=== PATIENT | female | born 1990 | race Hispanic/Latino ===

== ENCOUNTER 2018-03-02 14:20 | Emergency (ER) | payer OTHER ==
[2018-03-02 14:49] LABS: #Basophils 0.1 thou/uL (0.0-0.2); #Eosinphils 0.3 thou/uL (0.0-0.7); #Lymphocytes 3.1 thou/uL (1.20-3.40); #Monocytes 0.5 thou/uL (0.11-0.59); #Neutrophils 5.9 thou/uL (1.40-6.50); %Basophils 0.7 % (0.0-1.0); %Eosinophils 3.2 % (0.0-10.0); %Lymphocytes 31.1 % (21.0-51.0); %Monocytes 5.5 % (0.0-10.0); %Neutrophils 59.5 % (42.0-75.0); Hemoglobin 14.9 g/dL (12.0-16.0); Mean Corpuscular HGB CONC 31.7 g/dL (32.0-36.0); Mean Corpuscular Hemoglobin 26.8 pg (27.0-31.0); Mean Corpuscular Volume 84.7 fL (78.0-98.0); Mean Platelet Volume 9.2 fL (7.4-10.4); Platelet Count 285 thou/uL (130-400); RBC Distribution Width 13.7 % (11.5-14.5); Red Blood Cell (RBC) Count 5.56 mill/uL (4.20-5.40); White Blood Cell (WBC) Count 9.8 thou/uL (4.8-10.8)
[2018-03-02 14:53] LABS: Bilirubin Negative (Negative); Blood, Urine Negative (Negative); Clarity CLEAR (Clear); Glucose, Urine (Dipstick) Negative (Negative); Leukocyte Negative (Negative); Nitrite Negative (Negative); Protein, Urine (Dipstick) Negative (Neg-Trace); Specific Gravity, Urine 1.028 (1.002-1.036); Urobilinogen 0.2 mg/dL (0.2-1.0)
[2018-03-02 14:57] LABS: Pregnancy Test - Urine (BHCG) Negative (Negative)
[2018-03-02 14:58] LABS: Pregu Control Bar Appear? YES (CONTROL BAR); Specific Gravity 1.028 (1.002-1.036)
[2018-03-02 14:59] LABS: Pregu Control Background? CLEAR/WHITE (CLR/WHITE)
[2018-03-02 15:11] LABS: ALT (SGPT) 36 U/L (8-55); AST (SGOT) 33 U/L (5-34); Albumin 4.6 g/dL (3.5-5.0); Alkaline Phosphatase 111 U/L (40-150); Anion Gap 13 mmol/L (10-20); BUN (Urea Nitrogen) 13 mg/dL (7.0-18.7); Bilirubin, Total 0.4 mg/dL (0.2-1.2); Calc. Creatinine Clearance 0 mL/min (70-130); Calcium 9.3 mg/dL (7.8-10.44); Carbon Dioxide 27 mmol/L (22-29); Chloride 106 mmol/L (98-107); Estimated GFR-MDRD Greater than 90; Globulin 3.2 g/dL (2.4-3.5); Glucose 102 mg/dL (70-105); Lipase 15 U/L (8-78); Potassium 3.5 mmol/L (3.5-5.1); Protein, Total 7.8 g/dL (6.0-8.3); Sodium 142 mmol/L (136-145)
== END 2018-03-02 16:01 | disposition home or self-care (01) ==
LOC: ERS 14:20
DX: K21.9 Gastro-esophageal reflux disease without esophagitis (principal)
CPT/HCPCS: 36415; 80053; 81003; 81025; 83690; 85025; 93005

== ENCOUNTER 2019-05-03 11:49 | Day surgery (SDC) | payer OTHER ==
[2019-05-03 12:35] VITALS: BP 136/84; TEMP 97.8; BMI 39.8
[2019-05-03] MEDS ORDERED: hydrALAZINE 20 MG/ML VIAL SLOW IVP PRN (13:05)
--- NOTE | 2019-05-03 14:27 | ULT ---
LIMITED OBSTETRICAL ULTRASOUND FOR BIOPHYSICAL PROFILE INDICATION: 34 week with gestational diabetes TECHNIQUE: Grayscale, M-mode Doppler, color Doppler and spectral Doppler images were obtained. Biophy sical profile was submitted by the ground water technician. Imaging is focused on the clinical indication. COMPARISON: No relevant prior studies available. GESTATION: Number of gestations: Single. Presentation: Cephalic. heart rate: 163 bpm. Placental location: Posterior in vertex Previa: No evidence for previa. Cervical length: 3.8 cm INGRID: 16.2 cm. Biophysical profile: tone: 2 out of 2. breathin out of 2 movements: 2 out of 2 Amniotic fluid level: 2 out of 2 Biparietal diameter: 8.71 cm giving estimated gestational age of 36 weeks and 0 days (83rd percentile ). Head circumference: 31.70 cm giving an estimated gestational age of 35 weeks and 4 days (34th percent ile). Abdominal circumference: 36.29 cm given estimated gestational age of 40 weeks and 1 day (no percentil e given). Femoral length 6.80 cm giving estimated gestational age of 35 weeks and 0 days (44th percentile) Estimated weight is 3381 g +/- 5 100 g (7 lbs. 7 oz. +/- 18 ounces) (99 percentile). The average gestational age by ultrasound is 36 weeks and 5 days with estimated due date May 26, 2019. The clinical age is 34 weeks and 6 days with estimated due date of June 08, 2019. IMPRESSION: 1. Single live intrauterine gestation with size and dates as above. 2. Biophysical profile of 8 out of 8
--- NOTE | 2019-05-03 14:28 | ULT ---
LIMITED OBSTETRICAL ULTRASOUND FOR BIOPHYSICAL PROFILE INDICATION: 34 week with gestational diabetes TECHNIQUE: Grayscale, M-mode Doppler, color Doppler and spectral Doppler images were obtained. Biophy sical profile was submitted by the medication reconciliation technician. Imaging is focused on the clinical indication. COMPARISON: No relevant prior studies available. GESTATION: Number of gestations: Single. Presentation: Cephalic. heart rate: 163 bpm. Placental location: Posterior in vertex Previa: No evidence for previa. Cervical length: 3.8 cm INGRID: 16.2 cm. Biophysical profile: tone: 2 out of 2. breathin out of 2 movements: 2 out of 2 Amniotic fluid level: 2 out of 2 IMPRESSION: 1. Biophysical profile of 8 out of 8
--- NOTE | 2019-05-03 16:07 | PRG ---
DATE OF SERVICE: 05/03/2019 TIME OF SERVICE: 1450 hours. PRESENTING COMPLAINT: Contractions at 34 to 35 weeks' gestation. HISTORY OF PRESENT ILLNESS: Ms. Bentley is a 28-year-old 5, para 2, AB 2, living 2, previous x2, who has gestational diabetes. She sees Dr. Garrick Caba. She presents complaining of contractions. She denies nausea or vomiting. She denies other complications in this . HISTOLOGY MANAGER HISTORY: Noted. Blood type A negative, antibody negative. Pap negative. Rubella immune. VDRL nonreactive. Hepatitis B, GC, chlamydia negative. Antepartum record does not reflect the patient's office visits during this . PAST MEDICAL HISTORY: Gestational diabetes. PAST SURGICAL HISTORY: C-sections. ALLERGIES: DENIES. MEDICATIONS: vitamins and metformin. SOCIAL HISTORY: Denies tobacco, alcohol, or drug use. FAMILY HISTORY: Noncontributory. REVIEW OF SYSTEMS: Noncontributory. PHYSICAL EXAMINATION: GENERAL: female, in no acute distress. The patient was originally having some contractions and reported she had no p.o. intake all day. VITAL SIGNS: Blood pressure was 118/72, pulse 85, and respirations 18. HEENT: Within normal limits. LUNGS: Clear to auscultation bilaterally. HEART: Regular rhythm. ABDOMEN: Soft, nontender. No rebound or guarding. Vulvar lesion in vagina with discharge. Cervical exam by RN was closed, long, and high. EXTREMITIES: No clubbing, cyanosis, or edema. Nonstress test was carried out for greater than 30 minutes, which revealed category 1 to category 2 tracing with persistent category I. No D cells. Reactive NST. Biophysical profile was performed, which revealed a 7 pounds 7 ounces, 36 week and 5 day CGA with an INGRID of 16.2, BPP of 8/8 for vertex with a posterior placenta. The patient was fed and p.o. hydrated, contractions ceased and the patient felt much better. She had persistent category 1 tracing. IMPRESSION: Gestational diabetes 35 weeks' gestation with resolved contractions. PLAN: Discharge home. ER precautions. Keep scheduled followup with Gertrudis. Job ID: [id number]
== END 2019-05-03 15:15 | disposition home or self-care (01) ==
LOC: L&D/OP 11:49
PROVIDERS: ATTEND Obstetrics & Gynecology
DX: O47.03 False labor before 37 completed weeks of gestation, third trimester (principal); O24.415 Gestational diabetes mellitus in pregnancy, controlled by oral hypoglycemic drugs; O34.219 Maternal care for unspecified type scar from previous cesarean delivery; O09.293 Supervision of pregnancy with other poor reproductive or obstetric history, third trimester; Z3A.35 35 weeks gestation of pregnancy; Z79.84 Long term (current) use of oral hypoglycemic drugs
CPT/HCPCS: 36416; 76815; 76819; 99282

== ENCOUNTER 2019-05-18 08:05 | Inpatient (IN) | payer OTHER ==
[2019-05-18] MEDS ORDERED: Ondansetron PF 4 MG/2 ML Vial IVP PRN ×3 (09:37→15:18)
[2019-05-18] MEDS ORDERED: hydrALAZINE 20 MG/ML VIAL SLOW IVP PRN ×2 (09:37→15:18)
[2019-05-18] MEDS ORDERED: Promethazine HCl 25 MG/ML VIAL IM PRN ×3 (09:37→15:18)
--- NOTE | 2019-05-18 09:43 | PDOC.LDHP ---
Labor and Delivery H&P HPI: 28 y/o at 37 and 0/7 days for repeat with Gestational HTN, and Gestational DM on Metformin, and LGA fetus approximately 9 pounds in size. Current gestational age (weeks): 37 Due date: 06/08/19 Grav: 5 Para: 2 Current complications: gestational diabetes, gestational hypertension Abnormal US findings: Yes (LGA Fetus) Current medications: pre-alice vitamins Previous surgical history: low tranverse CS, other (D&C x1) Allergies/Adverse Reactions: Allergies Allergy/AdvReac Type Severity Reaction Status Date / Time No Known Allergies Allergy Unverified 05/03/19 12:24 Social history: none - Physical Exam Vital signs reviewed and normal: yes General: NAD, resting Heart: RRR Lungs: CTAB Abdomen: gravid Extremeties: no edema FHT: category 1 - Assessment L&D Assessment: scheduled repeat section - Plan Plan: admit to L&D, to OR for section
[2019-05-18] MEDS ORDERED: Bicitra 30 ML UDCUP PO SCH (09:45)
[2019-05-18] MEDS ORDERED: Lactated Ringer's 1,000 ML IV SCH (09:45)
[2019-05-18] MEDS ORDERED: CEFAZOLIN 2 GM in Premix Bag 1 BAG IVPB SCH (09:45)
[2019-05-18 10:51] VITALS: BMI 41.3
[2019-05-18] MEDS ORDERED: FLU VACC QS2019-20(6MOS UP)/PF 60 MCG/0.5 ML SYRINGE IM ONE (11:00)
[2019-05-18 11:21] LABS: Hemoglobin 12.4 g/dL (12.0-16.0); Mean Corpuscular Hemoglobin 25.4 pg (27.0-31.0); Mean Corpuscular Volume 76.8 fL (78.0-98.0); Mean Platelet Volume 10.7 fL (7.4-10.4); Platelet Count 170 thou/uL (130-400); RBC Distribution Width 14.1 % (11.5-14.5); Red Blood Cell (RBC) Count 4.87 mill/uL (4.20-5.40); White Blood Cell (WBC) Count 8.9 thou/uL (4.8-10.8)
[2019-05-18] MEDS ORDERED: Oxytocin 10 UNITS/ML VIAL ONE (11:22)
[2019-05-18] MEDS ORDERED: ePHEDrine/0.9% NaCl/PF SYRINGE 50 mg/10 ml ONE (11:22)
[2019-05-18] MEDS ORDERED: MORPHINE 5 MG/10 ML PF VIAL ONE (11:22)
[2019-05-18] MEDS ORDERED: Ondansetron PF 4 MG/2 ML Vial ONE (11:22)
[2019-05-18 12:01] LABS: HBSAg Index 0.22 S/CO (0-0.99); Hep B Surf Ag Non-Reactive S/CO (NonReactive); Syphilis Antibody Nonreactive (Nonreactive); Syphilis Antibody Index 0.02 S/CO (<1.00 Non-Reactive)
[2019-05-18] MEDS ORDERED: PHENYLEPHRINE-NS 100 MCG/ML 10 ML SYRINGE ONE (12:21)
[2019-05-18] MEDS ORDERED: Promethazine HCl 25 MG SUPP PR PRN (13:32)
[2019-05-18] MEDS ORDERED: Naloxone HCl 0.4 mg/ml Vial IVP PRN ×2 (13:32)
[2019-05-18] MEDS ORDERED: Ondansetron HCl/PF 4 MG/2 ML Vial IVP PRN (13:32)
[2019-05-18] MEDS ORDERED: HYDROmorphone 2 MG/ML VIAL SLOW IVP PRN (13:32)
[2019-05-18] MEDS ORDERED: diphenhydrAMINE 50 MG/ML VIAL IVP PRN (13:32)
[2019-05-18] MEDS ORDERED: Ketorolac Tromethamine 30 MG/ML VIAL IVP PRN (13:32)
[2019-05-18] MEDS ORDERED: Meperidine HCl/PF 25 MG/ML VIAL SLOW IVP PRN (13:32)
[2019-05-18] MEDS ORDERED: L&D-Morphine 4 MG/ML VIAL SLOW IVP PRN (13:32)
[2019-05-18] MEDS ORDERED: Naloxone HCl 0.4 mg/ml Vial IV PRN (13:32)
[2019-05-18] MEDS ORDERED: Ketorolac Tromethamine 30 MG/ML VIAL IVP SCH (13:45)
[2019-05-18] MEDS ORDERED: Communication Order-Pharmacy FS SCH (13:45)
[2019-05-18] MEDS ORDERED: Bisacodyl 10 MG SUPP PR PRN (15:18)
[2019-05-18] MEDS ORDERED: Misoprostol 200 MCG TAB PR PRN (15:18)
[2019-05-18] MEDS ORDERED: Lanolin Ointment 7 GM TUBE TOP PRN (15:18)
[2019-05-18] MEDS ORDERED: diphenhydrAMINE 25 MG CAP PO PRN (15:18)
[2019-05-18] MEDS ORDERED: NS / Oxytocin 40 units/1000ml 1,000 ML IV SCH (15:18)
[2019-05-18] MEDS ORDERED: NS / Oxytocin 40 units/1000ml 1,000 ML ONE (15:22)
[2019-05-18] MEDS: Docusate Calcium (SURFAK) 240 MG CAP PO SCH (21:19)
[2019-05-18] MEDS: Simethicone Chewable 80 MG TAB PO PRN (21:19)
[2019-05-18] MEDS: Ibuprofen 800 MG TAB PO SCH (21:19)
[2019-05-18] MEDS ORDERED: Meperidine HCl/PF 25 MG/ML VIAL ONE (22:47)
[2019-05-19] MEDS: Simethicone Chewable 80 MG TAB PO PRN ×3 (00:48→23:18)
[2019-05-19] MEDS: HYDROcodone/Acetaminophen 5/325 mg Tablet PO PRN ×5 (00:48→23:17)
[2019-05-19] MEDS ORDERED: Zolpidem Tartrate 5 MG TAB PO PRN (02:00)
[2019-05-19] MEDS: Ibuprofen 800 MG TAB PO SCH ×3 (05:20→22:25)
[2019-05-19 06:32] LABS: Hemoglobin 11.7 g/dL (12.0-16.0); Mean Corpuscular HGB CONC 32.4 g/dL (32.0-36.0); Mean Corpuscular Hemoglobin 25.2 pg (27.0-31.0); Mean Corpuscular Volume 77.9 fL (78.0-98.0); Platelet Count 133 thou/uL (130-400); RBC Distribution Width 14.3 % (11.5-14.5); Red Blood Cell (RBC) Count 4.64 mill/uL (4.20-5.40)
[2019-05-19] MEDS: Docusate Calcium (SURFAK) 240 MG CAP PO SCH ×2 (08:42→21:42)
[2019-05-19] MEDS: Prenatal Vitamin 1 TAB PO SCH (08:42)
--- NOTE | 2019-05-19 13:47 | PDOC.PP ---
Post Progress Note Post Day #: 1 PO intake tolerated: yes Flatus: yes Ambulation: yes Vital Signs (12 hours) Temp Pulse Resp BP BP 05/19/19 11:30 97.8 F 108 H 20 126/70 05/19/19 08:30 98.0 F 81 18 112/57 L 05/19/19 04:00 88 16 113/59 L Weight Weight 233 lb - Physical Examination General: NAD Cardiovascular: no m/r/g, RRR Respiratory: clear to auscultation bilaterally, non-labored breathing Abdominal: + bowel sounds, lochia, no distention Extremities: negative homans (B) Skin: CS incision dry & intact, no rash Neurological: no gross focal deficits Psychiatric: A&Ox3, normal affect Result Diagrams: 05/19/19 06:12 Additional Labs: Post Labs Blood Type A NEGATIVE 05/18/19 11:37 Hep Bs Antigen Non-Reactive S/CO (NonReactive) 05/18/19 11:12
[2019-05-19] MEDS ORDERED: Measles/Mumps/Rubella 10 MCG/0.5 ML VIAL SC ONE (15:18)
[2019-05-19] MEDS ORDERED: Varicella virus, LIVE 0.5 ML VIAL SC ONE (15:18)
[2019-05-19] MEDS ORDERED: Adacel (T-DAP) 0.5 ML SYRINGE IM ONE (15:18)
[2019-05-20] MEDS: HYDROcodone/Acetaminophen 5/325 mg Tablet PO PRN ×5 (03:17→23:48)
[2019-05-20] MEDS: Simethicone Chewable 80 MG TAB PO PRN ×4 (03:18→18:37)
[2019-05-20] MEDS: Ibuprofen 800 MG TAB PO SCH ×3 (05:38→22:51)
[2019-05-20] MEDS: Prenatal Vitamin 1 TAB PO SCH (08:21)
[2019-05-20] MEDS: Docusate Calcium (SURFAK) 240 MG CAP PO SCH ×2 (08:21→21:23)
--- NOTE | 2019-05-20 18:29 | PDOC.PP ---
Post Progress Note Post Day #: 2 PO intake tolerated: yes Flatus: yes Ambulation: yes Vital Signs (12 hours) Temp Pulse Resp BP Pulse Ox 05/20/19 08:02 97.8 F 95 20 124/85 97 Weight Weight 233 lb - Physical Examination General: NAD Cardiovascular: no m/r/g, RRR Respiratory: clear to auscultation bilaterally Abdominal: + bowel sounds, lochia, no distention Extremities: negative homans (B) Skin: CS incision dry & intact, no rash Neurological: no gross focal deficits Psychiatric: A&Ox3, normal affect Result Diagrams: 05/19/19 06:12 Additional Labs: Post Labs Blood Type A NEGATIVE 05/18/19 11:37 Hep Bs Antigen Non-Reactive S/CO (NonReactive) 05/18/19 11:12
[2019-05-21 09:07] VITALS: BP 125/70; TEMP 98.8
[2019-05-21] MEDS: Prenatal Vitamin 1 TAB PO SCH (10:14)
[2019-05-21] MEDS: Docusate Calcium (SURFAK) 240 MG CAP PO SCH (10:14)
[2019-05-21] MEDS: Ibuprofen 800 MG TAB PO SCH ×2 (10:14→14:19)
[2019-05-21] MEDS: HYDROcodone/Acetaminophen 5/325 mg Tablet PO PRN (10:14)
--- NOTE | 2019-05-23 17:02 | OP ---
DATE OF PROCEDURE: 05/18/2019 TIME OF SERVICE: 1234 hours central standard time. PREOPERATIVE DIAGNOSES: 1. Intrauterine at 37 weeks with gestational hypertension and gestational diabetes. 2. Obesity, who presents for repeat section. POSTOPERATIVE DIAGNOSES: 1. Intrauterine at 37 weeks with gestational hypertension and gestational diabetes. 2. Obesity, who presents for repeat section. 3. Uterine fibroids. PROCEDURES PERFORMED: 1. Repeat low-transverse section. 2. Myomectomy of single uterine fibroid. FINDINGS: Viable female infant, weighing 4295 g or 9 pounds 7 ounces with Apgars of 8 and 9. QUANTITATIVE BLOOD LOSS: 350 mL. COMPLICATIONS: None. DETAILS OF THE PROCEDURE: The patient was consented and taken back to the operating room where spinal anesthesia was found to be adequate. She was then prepped and draped in the normal sterile fashion. A timeout was performed by the entire operative team. The incision was then marked with a marking pen tested using sharp pickups. An incision was then made with a scalpel. The incision was carried through the adipose tissue down to the underlying rectus fascia using both sharp dissection as well as cautery. Once the fascia was identified, it was incised in the midline and then the fascial incision was carried through in both lateral directions using sharp as well as cautery dissection techniques. Next, the superior aspect of the rectus fascia was grasped with 2 [place] clamps, which was tented up and the rectus muscles were dissected off using blunt dissection as well as cautery dissection. Similarly, the inferior aspect of the fascial incision was grasped with 2 [place] clamps, tented up and the rectus muscles were dissected off bluntly as well as sharply. Next, the rectus muscles were in the midline and the peritoneum identified. The peritoneum was then carefully grasped with 2 hemostats and entered sharply. The peritoneal incision was extended superiorly and inferiorly and bladder blade was placed in the lower abdomen. At this point, the uterus was identified and the bladder flap was then developed using pickups with teeth as well as Metzenbaum scissors in both lateral directions. The bladder flap was then dissected downwards using the grit removal operator's finger as well as Metzenbaum scissors. The bladder blade was replaced. The lower uterine segment was then identified and entered sharply using a clean scalpel. The uterine incision was then dissected downwards until thin layer of muscle remained and this was entered bluntly using a hemostat to avoid any injury to the baby. The uterine incision was then stretched using two fingers in both lateral directions. An amniotomy was performed artificially using a hemostat and the baby was delivered using fundal pressure in a gentle fashion. Once out, the baby's mouth and nose were bulb suctioned, cord clamped and cut, and the baby was handed to waiting attendants. Next, the uterus was exteriorized, cleared of all clots and debris and the uterine incision was repaired with #1 Monocryl in a running locking fashion. A 2nd suture of the same type was used to obtain complete hemostasis at the uterine incision. The bladder flap was reapproximated using 3-0 Monocryl. Next, patient's left and right adnexa were inspected and appeared to be within normal limits. The posterior cul-de-sac was blotted dry and hemostasis assured. One more look at the uterine incision demonstrated hemostasis. Next, the uterus was replaced back within the abdomen. The peritoneum was reapproximated using 2-0 Monocryl without difficulty. The rectus muscles were then allowed to come back together and 0 chromic was used to aid in reapproximation of the muscle as necessary. The rectus fascia was then reapproximated in a running fashion using 0 Vicryl suture. The adipose tissue was then examined and appeared to be well approximated without any obvious separations. Finally, the skin was reapproximated with 3-0 Monocryl on a [place]on needle without difficulty and Dermabond adhesive was applied to the skin. Once the glue was dry, the drapes were removed and the patient was transferred to an ambulatory bed where she was taken to recovery awake and in stable condition. Sponge, lap, and needle counts were correct x3. ADDENDUM: Once the uterine incision was closed, a single fibroid was noted on the left posterior fundus. This was excised completely using Bovie cautery as well as sharp cautery and sent to Pathology for permanent section. Hemostasis was assured prior to continuing surgery. Job ID: [id number]
== END 2019-05-21 14:30 | disposition home or self-care (01) | DRG 788 ==
LOC: L&D 09:52 → 3SW 15:54
PROVIDERS: ADMIT Obstetrics & Gynecology; ATTEND Obstetrics & Gynecology
PROC: 10D00Z1 Extraction of Products of Conception, Low, Open Approach (ICD-10-PCS; principal; 2019-05-18)
PROC: 0UB90ZZ Excision of Uterus, Open Approach (ICD-10-PCS; 2019-05-18)
PROC: 3E0334Z Introduction of Serum, Toxoid and Vaccine into Peripheral Vein, Percutaneous Approach (ICD-10-PCS; 2019-05-18)
DX: O34.211 Maternal care for low transverse scar from previous cesarean delivery (principal); O99.214 Obesity complicating childbirth; Z3A.37 37 weeks gestation of pregnancy; Z37.0 Single live birth; E66.9 Obesity, unspecified; O13.4 Gestational [pregnancy-induced] hypertension without significant proteinuria, complicating childbirth; O24.425 Gestational diabetes mellitus in childbirth, controlled by oral hypoglycemic drugs; O34.13 Maternal care for benign tumor of corpus uteri, third trimester; D25.9 Leiomyoma of uterus, unspecified
CPT/HCPCS: 36415; 85027; 85461; 86780; 86850; 86900; 86901; 87340; 88305; 90384; 90715; 96372; J0690; J2175; J2274; J2405; J2590; Q0163

== ENCOUNTER 2019-07-06 17:38 | Emergency (ER) | payer OTHER ==
--- NOTE | 2019-07-06 18:19 | RAD ---
RADIOGRAPH RIGHT HAND 4VIEWS: DATE: 07/06/2019 HISTORY: 28-year-old female with right hand pain FINDINGS: There is no evidence of fracture or dislocation. There is no evidence of periostitis, permeative lesi on, osteolytic lesion, or osteoblastic lesion. The joint spaces are maintained without erosions or significant osteophytes. IMPRESSION: Normal
== END 2019-07-06 18:28 | disposition home or self-care (01) ==
LOC: ERS 17:38
DX: D36.7 Benign neoplasm of other specified sites (principal)

== ENCOUNTER 2022-08-02 15:53 | Outpatient (CLI) | payer BC, OTHER ==
[2022-08-02 16:31] LABS: #Basophils 0.1 10x3/uL (0.0-0.2); #Eosinphils 0.2 10x3/uL (0.0-0.5); #Monocytes 0.4 10x3/uL (0.0-1.1); %Basophils 0.4 % (0.0-2.0); %Eosinophils 1.6 % (0.0-6.0); %Lymphocytes 21.9 % (18.0-47.0); %Monocytes 3.7 % (0.0-10.0); %Neutrophils 71.7 % (40.0-75.0); Mean Corpuscular HGB CONC 34.2 g/dL (32.0-36.0); Mean Corpuscular Hemoglobin 29.4 pg (27.0-33.0); Mean Corpuscular Volume 85.9 fl (81.6-98.3); Mean Platelet Volume 11.1 fl (7.4-10.4); Platelet Count 225 10x3/uL (150-450); RBC Distribution Width 13.5 % (11.5-14.5); Red Blood Cell (RBC) Count 4.76 10x6/uL (3.90-5.03); White Blood Cell (WBC) Count 11.1 10x3/uL (3.5-10.5)
[2022-08-02 16:42] LABS: ALT (SGPT) 30 U/L (8-55); AST (SGOT) 16 U/L (5-34); Albumin 3.7 g/dL (3.5-5.0); Alkaline Phosphatase 67 U/L (40-110); Anion Gap 15 mmol/L (10-20); BUN (Urea Nitrogen) 7 mg/dL (7.0-18.7); Bilirubin, Direct 0.1 mg/dL (0.1-0.3); Bilirubin, Total 0.3 mg/dL (0.2-1.2); Calc. Creatinine Clearance 0 mL/min (70-130); Carbon Dioxide 19 mmol/L (22-29); Chloride 108 mmol/L (98-107); Estimated GFR 125; Globulin 2.8 g/dL (2.4-3.5); Glucose 100 mg/dL (70-105); Potassium 3.7 mmol/L (3.5-5.1); Protein, Total 6.5 g/dL (6.0-8.3); Sodium 138 mmol/L (136-145)
== END 2022-08-02 15:54 | disposition home or self-care (01) ==
LOC: LABBT 15:53
PROVIDERS: ATTEND Surgery
DX: Z01.812 Encounter for preprocedural laboratory examination (principal); O99.619 Diseases of the digestive system complicating pregnancy, unspecified trimester; K80.20 Calculus of gallbladder without cholecystitis without obstruction
CPT/HCPCS: 80053; 80076; 85025

== ENCOUNTER 2022-08-16 07:12 | Day surgery (SDC) | payer BC, OTHER ==
[2022-08-15 10:51] VITALS: BMI 39.3
[2022-08-16] MEDS ORDERED: Bupivacaine/Epinephrine 0.25% 30 ML VIAL ONE (10:06)
[2022-08-16] MEDS ORDERED: Indocyanine Green 25 MG/10 ML VIAL ONE (10:07)
[2022-08-16] MEDS ORDERED: fentaNYL PF 100 MCG/2 ML SYRINGE ONE (10:12)
[2022-08-16] MEDS ORDERED: Sodium Chloride 0.9% 100 ML ONE (10:23)
[2022-08-16] MEDS ORDERED: CEFAZOLIN 2 GM VIAL ONE (10:23)
[2022-08-16] MEDS ORDERED: cefOXitin 2 GM VIAL ONE (10:24)
[2022-08-16] MEDS ORDERED: NEOSTIGMINE 3 MG/3 ML SYR 3 MG/3 ML SYRINGE ONE (10:38)
[2022-08-16] MEDS ORDERED: Glycopyrrolate 0.2 MG/ML 5 ML SYRINGE ONE (10:38)
[2022-08-16] MEDS ORDERED: Rocuronium Bromide 10 MG/ML (10ML VIAL) ONE (10:38)
[2022-08-16] MEDS ORDERED: Succinylcholine Chloride 100 MG/5 ML SYRINGE FS ONE (10:38)
[2022-08-16] MEDS ORDERED: Albuterol HFA (OR) 200 PUFF INH ONE (10:38)
[2022-08-16] MEDS ORDERED: Lidocaine 1% PF 5 ML VIAL ONE (10:38)
[2022-08-16] MEDS ORDERED: PROPOFOL 200 MG/20 ML VIAL ONE (10:38)
[2022-08-16] MEDS ORDERED: fentaNYL 50 mcg/mL 1 mL Vial ONE (11:53)
[2022-08-16] MEDS ORDERED: HYDROmorphone 0.5 MG/0.5 ML SYRINGE ONE ×2 (12:06→12:18)
== END 2022-08-16 14:33 | disposition home or self-care (01) ==
LOC: SDC 07:12
PROVIDERS: ATTEND Surgery
PROC: 8E0W4CZ Robotic Assisted Procedure of Trunk Region, Percutaneous Endoscopic Approach (ICD-10-PCS; principal; 2022-08-16)
PROC: 0FT44ZZ Resection of Gallbladder, Percutaneous Endoscopic Approach (ICD-10-PCS; principal; 2022-08-16)
DX: O99.612 Diseases of the digestive system complicating pregnancy, second trimester (principal); K80.10 Calculus of gallbladder with chronic cholecystitis without obstruction; K82.8 Other specified diseases of gallbladder; Z3A.18 18 weeks gestation of pregnancy; Z98.891 History of uterine scar from previous surgery
CPT/HCPCS: 88304; C1776; J0694; J1170; J2704; J3010; J3490